=== PATIENT | female | born 1935 | race Caucasian/White ===

== ENCOUNTER 2020-03-18 07:02 | Day surgery (SDC) | payer MEDICARE, OTHER ==
[2020-03-06 15:42] VITALS: BP 138/80
[2020-03-06 16:27] LABS: BASOPHIL % 0.3 % (0.0-0.2); EOSINOPHIL # 0.2 10^3/uL (0.0-0.2); EOSINOPHIL % 2.7 % (0.0-5.0); LYMPHOCYTES # 1.81 10^3/uL1 (1.0-4.8); LYMPHOCYTES % 21.1 % (24.0-44.0); MEAN CORP HGB 33.8 pg (26-34); MONOCYTES # 0.6 10^3/uL (0.3-0.8); MONOCYTES % 6.8 % (5.0-12.0); NEUTROPHIL # 5.9 10^3/uL (1.8-7.7); NEUTROPHILS % 68.6 % (41.0-85.0); PLATELET COUNT 276 10^3/uL (150-400); RED CELL DISTRIBUTION WIDTH 12.7 % (11.5-14.5)
[2020-03-06 16:49] LABS: CARBON DIOXIDE 28.3 mmol/L (20.0-32)
--- NOTE | 2020-03-07 14:25 | PCM.EKG ---
[facility] Test Date: 2020-03-06 Test Time: 14:53:40 Pat Name: JOHN ESCALANTE Department: Room: Gender: F Counseling Director: LAWANDA : 1935 Requested By: JOSSY PARR Order Number: [id number] Reading MD: Measurements Intervals [place] Rate: 72 P: 76 AR: 150 QRS: 63 QRSD: 88 T: 55 QT: 380 QTc: 416 Interpretive Statements Normal sinus rhythm Normal ECG No previous ECG available for comparison Please click the below link to view image of tracing.
[~2020-03-18] VITALS: Ht 162.6 cm; Wt 78.0 kg
[~2020-03-18 07:02] MED LIST: AMLO10TA8 PO; AMLO2.5T5 PO; ASPI-484 PO; ASPI-667 PO; BIOT1TAB2 PO; CHOL500016 PO; CLON0.2T PO; CLOP75TA52 PO; LACTATED RINGERS 1,000 ML IV SCH; LEVO125T6 PO; LISI-410 PO; OMEP20CA19 PO; TRIA1CAP3 PO; VALS160T3 PO; VALS320T2 PO; ZOLP10TA5 PO
[2020-03-18 07:10] VITALS: BP 142/78
[2020-03-18] MEDS ORDERED: WATER ONE (07:17)
[2020-03-18] MEDS ORDERED: VERSED ONE (07:37)
[2020-03-18] MEDS ORDERED: DIPRIVAN IV ONE (07:37)
[2020-03-18 08:18] VITALS: BP 127/66
[2020-03-18 08:20] VITALS: BP 122/65
[2020-03-18 08:35] VITALS: BP 133/53
[2020-03-18 08:50] VITALS: BP 153/82
[2020-03-18 09:00] VITALS: BP 163/73
--- NOTE | 2020-03-18 09:53 | OPH ---
DATE OF SURGERY: 03/18/2020 BRIEF PROCEDURE NOTE PREOPERATIVE DIAGNOSIS: History of dysphagia. POSTOPERATIVE DIAGNOSIS: Mild gastritis. SURGEON: Frandy Sumner DO MAP COMPILER: OR staff. ANESTHESIA: Total intravenous anesthesia by Dr. Ash Guaman CRNA. PROCEDURES PERFORMED: Esophagogastroduodenoscopy with biopsy. SPECIMENS: Gastric mucosa to path. ESTIMATED BLOOD LOSS: 3 mL. COUNTS: At the completion of the case, the counts were correct per OR staff. DESCRIPTION OF PROCEDURE: As follows: The patient is an 84-year-old female known from previous evaluation. Prior to procedure, informed consent was obtained. At time of procedure, she was taken to the operative suite and placed in supine position. After time-out was completed, she was placed in left lateral recumbent position. After adequate sedation, esophagogastroduodenoscope was advanced transorally with pneumoinsufflation distally in second portion of duodenum. Once the duodenum was adequately visualized, camera was slowly withdrawn to facilitate visualization of the duodenal bulb and the pylorus. The distal stomach shows gastritis and biopsies were obtained. The retroflexed maneuver was performed. The cardia shows some proximal gastric polyps, otherwise no significant pathology in the GE junction region. Camera was reduced. Stomach was decompressed. Scope was slowly withdrawn. Distal, mid and proximal esophagus were all within normal limits. Vocal cords were visualized within normal limits. Camera was removed, procedure was discontinued. The patient tolerated this procedure well. There were no acute complications noted. Frandy Sumner DO DR: ANNIKA/mansi JOB# [id number] CC: PRESTON HODGE MD
== END 2020-03-18 09:15 | disposition home or self-care (01) ==
LOC: SDC 07:02
PROVIDERS: ATTEND Surgery
DX: K29.50 Unspecified chronic gastritis without bleeding (principal); I10 Essential (primary) hypertension; E03.9 Hypothyroidism, unspecified; K21.9 Gastro-esophageal reflux disease without esophagitis; I15.0 Renovascular hypertension; Z98.890 Other specified postprocedural states; Z79.899 Other long term (current) drug therapy; Z88.8 Allergy status to other drugs, medicaments and biological substances; Z83.3 Family history of diabetes mellitus; Z82.49 Family history of ischemic heart disease and other diseases of the circulatory system; Z83.6 Family history of other diseases of the respiratory system; Z88.5 Allergy status to narcotic agent
CPT/HCPCS: 36415; 43239; 80053; 85025; 85610; 85730; 88305; 93005; J2250; J3490